=== PATIENT | female | born 1955 | race Caucasian/White ===

== ENCOUNTER 2016-09-26 15:15 | Emergency (ER) | payer BC ==
[~2016-09-26] VITALS: Ht 152.4 cm; Wt 43.0 kg
[~2016-09-26 15:15] MED LIST: ERYT1O LEFT EYE; OXYC-360 PO
[2016-09-26 15:18] VITALS: BP 115/71; PULSE 76; RESP 16; TEMP 98.3; O2SAT 95
--- NOTE | 2016-09-26 15:35 | PD ---
HPI Chief Complaint: Pain: Acute or Chronic Time Seen by Provider: 15:20 Travel History International Travel<30 days: No Contact w/Intl Traveler<30days: No Traveled to known affect area: No History of Present Illness HPI 61-year-old right-handed female presents to the emergency room for evaluation of left wrist pain for the past week. Patient denies trauma or injury. States pain is localized to the radial aspect with radiation up the entire arm. Certain range of motion sends a shooting, sharp pain "like a nerve was pinched. " Her fingers occasionally go numb. She has been taking full strength aspirin twice daily with moderate relief in symptoms. Patient is concerned because she got cut on the same wrist just before the pain developed and she was worried that there is an infection in her wrist. She works in the [employer] at [employer]. [facility] Past Medical History Hx Anticoagulant Therapy: Yes (325 ASA DAILY) Cancer: No Cardiovascular Problems: No Diabetes: No Diminished Hearing: No Endocrine: No Genitourinary: No Immune Disorder: No Musculoskeletal: Yes (RHEUMATOID ARTHRITIS RIGHT HAND) Neurologic: No Psychiatric: No Reproductive: No Respiratory: No Immunizations Current: Yes ?: Not Menopausal: Yes Past Surgical History Body Medical Devices: MESH IN CHEST. NO STERNUM. Cholecystectomy: Yes Thoracic Surgery: Yes ("STERNAL SURGERY FOR OSTEOCONDROMA 1987"- NO STERNUM) Social History Alcohol Use: No Tobacco Use: Yes (1 PPD) Substance Use: No Allergies-Medications (Allergen,Severity, Reaction): Coded Allergies: Codeine (Verified Allergy, Severe, SWELLING, 09/26/16) Penicillin (Verified Allergy, Severe, Swelling, 09/26/16) Reported Meds & Prescriptions Reported Meds & Active Scripts Active Erythromycin Opht 0.5% Oint (Erythromycin) 0.5 % Oint 1 Applic LEFT EYE QID Instill 1/2 inch Percocet (Oxycodone/Acetaminophen) 5 Mg/325 Mg Tab 1 Tab PO Q6 PRN FOR PAIN Review of Systems Except as stated in HPI: all other systems reviewed are Neg Physical Exam Narrative GENERAL: Well-nourished, well-developed female in no acute distress. Afebrile. Ambulatory. SKIN: Focused skin assessment warm/dry. Erythema or ecchymosis. There is a 1 cm, almost completely healed, noninfected abrasion to the dorsal wrist. HEAD: Normocephalic. EYES: No scleral icterus. No injection or drainage. NECK: Supple, trachea midline. No JVD or lymphadenopathy. CARDIOVASCULAR: Regular rate and rhythm without murmurs, gallops, or rubs. RESPIRATORY: Breath sounds equal bilaterally. No accessory muscle use. EXTREMITY: Left wrist mildly tender to palpation of the radial aspect. 2+ radial pulse. Radial, ulnar, and median nerves intact. Full range of motion of all joints. Negative Phalen and Tinel sign. Negative [place] sign. Data Data Last Documented VS Vital Signs Date Time Temp Pulse Resp B/P Pulse Ox O2 Delivery O2 Flow Rate FiO2 09/26/16 15:18 98.3 76 16 115/71 95 MDM Medical Decision Making Medical Screen Exam Complete: Yes Emergency Medical Condition: Yes Medical Record Reviewed: Yes Differential Diagnosis Tendinopathy versus carpal tunnel syndrome versus tendinitis Narrative Course 61-year-old female presents to the emergency room for evaluation of left wrist pain for the past week. Patient denies trauma or injury. Pain is localized to the radial aspect and worse with range of motion. Physical exam reveals no erythema, edema, or ecchymosis. No obvious deformity. Mild tenderness to palpation over the radial wrist. Left upper extremity is neurovascularly intact with 2+ radial pulse. Radial, ulnar, and median nerves intact. History and physical exam are consistent with tendinitis. Patient placed in a Velcro wrist splint and told to follow-up with her primary care physician or return for worsening symptoms. She understands and agrees plan. Diagnosis Primary Impression: Tendinitis of forearm Referrals: Primary Care Physician Patient Instructions: General Instructions, Tendinitis (ED) Additional Instructions: Rest and drink plenty of fluids. Use splint as needed for pain. Take ibuprofen with food as directed, as needed for pain. Apply ice to the affected area for 20 minutes at a time, as needed for pain and swelling. Follow-up with a primary care physician. Return to the emergency room for worsening symptoms. Med/Other Pt SpecificInfo: Prescription(s) given Disposition: 01 DISCHARGE HOME Condition: Stable Zohra Morales Sep 26, 2016 15:35
== END 2016-09-26 15:53 | disposition home or self-care (01) ==
LOC: PHEFT 15:15
DX: M77.9 Enthesopathy, unspecified (principal); F17.200 Nicotine dependence, unspecified, uncomplicated; Z79.82 Long term (current) use of aspirin; Z87.39 Personal history of other diseases of the musculoskeletal system and connective tissue
CPT/HCPCS: 99282; L3908

== ENCOUNTER 2017-07-20 14:54 | Emergency (ER) | payer SELFPAY ==
[~2017-07-20] VITALS: Ht 152.4 cm; Wt 43.6 kg
[2017-07-20 14:59] VITALS: BP 123/63; PULSE 74; RESP 18; TEMP 98.5; O2SAT 98
[2017-07-20] MEDS ORDERED: BUPR4MIS SL (15:07)
[2017-07-20] MEDS ORDERED: PROPARACAINE HCL 0.5% OPHT SOLN 15 ML BTL RIGHT EYE ONE (15:15)
[2017-07-20] MEDS ORDERED: ERYTOIN10 RIGHT EYE (15:46)
--- NOTE | 2017-07-20 15:46 | PD ---
HPI Chief Complaint: Eye Problems/Injury Time Seen by Provider: 15:11 Travel History International Travel<30 days: No Contact w/Intl Traveler<30days: No Traveled to known affect area: No History of Present Illness HPI 62-year-old female presents to the ED for evaluation of irritation of the right eye 3 days. Pain is rated 9/10, no alleviating or exacerbating factors reported. Patient states that she thought that she might have left a piece of her contact in the eye. Despite this she inserted another contact lens. She endorses blurred vision, mild headache, and foreign body sensation. She denies dizziness, fevers. No treatment attempted at home. PFSH Past Medical History Hx Anticoagulant Therapy: Yes (325 ASA DAILY) Cancer: No Cardiovascular Problems: No Diabetes: No Diminished Hearing: No Endocrine: No Genitourinary: No Immune Disorder: No Musculoskeletal: Yes (RHEUMATOID ARTHRITIS RIGHT HAND) Neurologic: No Psychiatric: No Reproductive: No Respiratory: No Immunizations Current: Yes Tetanus Vaccination: < 5 Years Influenza Vaccination: No ?: Not Menopausal: Yes Past Surgical History Body Medical Devices: MESH IN CHEST. NO STERNUM. Cholecystectomy: Yes Thoracic Surgery: Yes ("STERNAL SURGERY FOR OSTEOCONDROMA 1987"- NO STERNUM) Other Surgery: Yes Social History Alcohol Use: No Tobacco Use: Yes (1 PPD) Substance Use: No Allergies-Medications (Allergen,Severity, Reaction): Coded Allergies: codeine (Unverified Allergy, Severe, SWELLING, 07/20/17) penicillin G (Unverified Allergy, Severe, Swelling, 07/20/17) Reported Meds & Prescriptions Reported Meds & Active Scripts Active Reported Suboxone Sublingual Film (Buprenorphine-Naloxone Sublingual Film) 4-1 Mg Film 1 Film SL Unique ID number required: Review of Systems Except as stated in HPI: all other systems reviewed are Neg Physical Exam Narrative GENERAL: Well-nourished, well-developed white female in no acute distress. SKIN: Warm and dry. HEAD: Normocephalic. Atraumatic. EYES: No scleral icterus. The patient has eyelash extensions. Right eye injected, draining clear fluid. PERRLA. EOMI. FUNDUSCOPIC EXAM: The bilateral funduscopic exam appeared within normal limits without papilledema, A- V nicking or blood associated with the optic disc. Fluorescein exam of the right eye reveals a whole contact in place. After removal a 1 mm corneal abrasion was noted in the 3 o'clock position. ENT: Pearly schilling tympanic membranes bilaterally. Nasal mucosa is moist. Oropharynx without erythema, edema or exudate. NECK: Supple, trachea midline. No JVD or lymphadenopathy. CARDIOVASCULAR: Regular rate and rhythm without murmurs, gallops, or rubs. No carotid bruits. 2+ DP and radial pulses bilaterally. RESPIRATORY: Breath sounds clear and equal bilaterally. No accessory muscle use. GASTROINTESTINAL: Abdomen soft, non-tender, nondistended. + Bowel sounds MUSCULOSKELETAL: No cyanosis, or edema. Full, active range of motion. Strength 5/5. Neurovascularly intact. BACK: Nontender without obvious deformity. No CVA tenderness. Data Data Last Documented VS Vital Signs Date Time Temp Pulse Resp B/P (MAP) Pulse Ox O2 Delivery O2 Flow Rate FiO2 07/20/17 14:59 98.5 74 18 123/63 (83) 98 Orders Orders Proparacaine 0.5% Opth Soln (Alcaine 0.5 (07/20/17 15:15) MDM Medical Decision Making Medical Screen Exam Complete: Yes Emergency Medical Condition: Yes Differential Diagnosis Foreign body versus retained contact lens versus corneal abrasion versus other Narrative Course 62-year-old female presents to the ED for evaluation of 3 day history of right eye irritation. Onset after she thought that she might have left a piece of a contact in her eye. Despite this she inserted another contact. She endorses blurred vision, pain in the eye. Vitals reviewed. On exam the patient has a intact contact lens. This was removed. Patient has eyelash extensions. Funduscopic exam unremarkable. Fluorescein staining reveals a 1 mm corneal abrasion in the 3 o'clock position. Patient's prescribed erythromycin ointment 4 times daily. She is instructed to refrain from using contact lenses for 1 week. She is instructed to use cold artificial tears for pain management, follow-up with the tunneling machine operator. She is agreeable with this plan. The patient stable discharged home. Diagnosis Primary Impression: Corneal abrasion of right eye due to contact lens Referrals: Director Manufacturing Engineering Patient Instructions: Corneal Abrasion (ED), General Instructions Additional Instructions: Rest, hydrate. No contact usage for 1 week. Erythromycin ointment ribbon 4 times a day 5 days as prescribed. Artificial tears To the refrigerator and instilled in the eye a few times a day may help to reduce her pain symptoms. Do not allow the tip of either medication container to touch the eye. Follow-up with the tunneling machine operator. Return to the ED for worsening symptoms or any urgent or emergent medical condition. Med/Other Pt SpecificInfo: Prescription(s) given Disposition: 01 DISCHARGE HOME Condition: Stable Lili Overton Jul 20, 2017 15:46
== END 2017-07-20 16:01 | disposition home or self-care (01) ==
LOC: PHEFT 14:54
DX: H18.821 Corneal disorder due to contact lens, right eye (principal); R51 Headache; M06.9 Rheumatoid arthritis, unspecified; F17.200 Nicotine dependence, unspecified, uncomplicated; Z88.5 Allergy status to narcotic agent; Z88.0 Allergy status to penicillin
CPT/HCPCS: 99283